=== PATIENT | male | born 1995 | race Hispanic/Latino ===

== ENCOUNTER 2017-03-26 21:25 | Emergency (ER) | payer OTHER ==
[~2017-03-26] VITALS: Ht 172.7 cm; Wt 57.8 kg
[~2017-03-26 21:25] MED LIST: ZOFRAN ODT8 MG PO
[2017-03-27] MEDS ORDERED: MOTRIN600 MG PO (02:00)
[2017-03-27 02:14] VITALS: BP 101/50
== END 2017-03-27 02:15 | disposition home or self-care (01) ==
LOC: EXP 21:25 → EME 21:25 → EXP 03-27 02:15
DX: B34.9 Viral infection, unspecified (principal)
CPT/HCPCS: 99281; 99284; J7030